=== PATIENT | female | born 1995 | race Caucasian/White ===

== ENCOUNTER 2018-03-12 14:47 | Day surgery (SDC) | payer OTHER ==
--- NOTE | 2018-03-12 14:56 | EDPHY ---
H & P Stated Complaint: LLQ PAIN Time Seen by Provider: 03/12/18 14:48 HPI/ROS: CHIEF COMPLAINT: Possible ovarian torsion HISTORY OF PRESENT ILLNESS: 23-year-old female arrives via ambulance from [facility] after she initially presented there with her mother for complaints of lower abdominal pain since this morning. She had an ultrasound performed showing an 8 cm ovarian cyst with no flow. test was not obtained at that time. She was referred to the ER after consultation with OBGYN. She remains NPO since yesterday afternoon. Her pain is currently controlled. PRIMARY CARE PROVIDER: REVIEW OF SYSTEMS: A ten point review of systems was performed and is negative with the exception of the items mentioned in the HPI PAST MEDICAL & SURGICAL HISTORY: History of recurrent is ovarian cyst SOCIAL HISTORY:Nonsmoker student PHYSICAL EXAM (Prior to examination, patient consented to physical exam, hands were washed and my usual and customary physical exam procedures followed) 1) GENERAL: Well-developed, well-nourished, alert and oriented. Appears to be in no acute distress. 2) HEAD: Normocephalic, atraumatic 3) HEENT: Pupils equal, round, reactive to light bilaterally. Sclera anicteric. 4) NECK: Full range of motion, no meningeal signs. 5) LUNGS: Clear auscultation bilaterally, no wheezes, no rhonchi, no retractions. 6) HEART: Regular rate and rhythm, no murmur, no heave, no gallop. 7) ABDOMEN: No guarding, no rebound, no focal tenderness, negative McBurney's, negative Hodge's, negative Rovsing's, negative peritoneal sign, 8) MUSCULOSKELETAL: Moving all extremities, no focal areas of tenderness, no obvious trauma. No peripheral edema or discoloration. 9) BACK: No CVA tenderness, no midline vertebral tenderness, no fluctuance, no step-off, no obvious trauma, no visual or palpable abnormality. 10) SKIN: No rash, no petechiae. 11) Psychiatric: Patient is oriented X 3, there is no agitation. DIFFERENTIAL DIAGNOSIS: In no particular order including but not limited to ovarian cyst, ovarian torsion, ectopic - Personal History Current Tetanus/Diphtheria Vaccine: Yes - Medical/Surgical History Hx Asthma: No Hx Chronic Respiratory Disease: No Hx Diabetes: No Hx Cardiac Disease: No Hx Renal Disease: No Hx Cirrhosis: No Hx Alcoholism: No Hx HIV/AIDS: No Hx Splenectomy or Spleen Trauma: No - Social History Smoking Status: Never smoked Constitutional: Initial Vital Signs Temperature (C) 36.8 C 03/12/18 14:53 Heart Rate 47 L 03/12/18 14:53 Respiratory Rate 16 03/12/18 14:53 Blood Pressure 119/73 03/12/18 14:53 O2 Sat (%) 96 03/12/18 14:53 O2 Delivery Mode Room Air Allergies/Adverse Reactions: No Known Allergies Allergy (Unverified 03/12/18 14:52) Home Medications: Medication Instructions Recorded NK [No Known Home Meds] 03/12/18 Medical Decision Making ED Course/Re-evaluation: 2:55 p.m.: Discussed case with secondary supervising physician Dr. Shannon in the ER. Dr. Coral MCALLISTER has been paged and is en route to the ER. Patient remains NPO since yesterday afternoon. test, type and screen are pending. 3:07 p.m.: Dr. Moncada in the ER to see patient. Will plan on taking the patient to the operating room. - Data Points Laboratory Results: Laboratory Results 03/12/18 14:59 03/12/18 14:56 03/12/18 03/12/18 03/12/18 14:59 14:59 14:56 WBC 10.77 10^3/uL H 10^3/uL (3.80-9.50) RBC 4.36 10^6/uL 10^6/uL (4.18-5.33) Hgb 12.6 g/dL g/dL (12.6-16.3) Hct 37.3 % L % (38.0-47.0) MCV 85.6 fL fL (81.5-99.8) MCH 28.9 pg pg (27.9-34.1) MCHC 33.8 g/dL g/dL (32.4-36.7) RDW 13.6 % % (11.5-15.2) Plt Count 229 10^3/uL D 10^3/uL (150-400) MPV 10.3 fL fL (8.7-11.7) Neut % (Auto) 87.4 % H % (39.3-74.2) Lymph % (Auto) 8.5 % L % (15.0-45.0) [place] % (Auto) 3.5 % L % (4.5-13.0) Eos % (Auto) 0.1 % L % (0.6-7.6) Baso % (Auto) 0.2 % L % (0.3-1.7) Nucleat RBC Rel Count 0.0 % % (0.0-0.2) Absolute Neuts (auto) 9.41 10^3/uL H 10^3/uL (1.70-6.50) Absolute Lymphs (auto) 0.92 10^3/uL L 10^3/uL (1.00-3.00) Absolute Monos (auto) 0.38 10^3/uL 10^3/uL (0.30-0.80) Absolute Eos (auto) 0.01 10^3/uL L 10^3/uL (0.03-0.40) Absolute Basos (auto) 0.02 10^3/uL 10^3/uL (0.02-0.10) Absolute Nucleated RBC 0.00 10^3/uL 10^3/uL (0-0.01) Immature Gran % 0.3 % % (0.0-1.1) Immature Gran # 0.03 10^3/uL 10^3/uL (0.00-0.10) PT 15.0 SEC SEC (12.0-15.0) INR 1.16 (0.83-1.16) APTT 27.2 SEC SEC (23.0-38.0) Sodium Potassium Chloride Carbon Dioxide Anion Gap BUN Creatinine Estimated GFR Glucose Calcium Beta HCG, Qual Patient ABO/Rh A POSITIVE Antibody Screen NEGATIVE 03/12/18 03/12/18 14:56 14:56 WBC RBC Hgb Hct MCV MCH MCHC RDW Plt Count MPV Neut % (Auto) Lymph % (Auto) [place] % (Auto) Eos % (Auto) Baso % (Auto) Nucleat RBC Rel Count Absolute Neuts (auto) Absolute Lymphs (auto) Absolute Monos (auto) Absolute Eos (auto) Absolute Basos (auto) Absolute Nucleated RBC Immature Gran % Immature Gran # PT INR APTT Sodium 139 mEq/L mEq/L (135-145) Potassium 4.1 mEq/L mEq/L (3.5-5.2) Chloride 108 mEq/L mEq/L (97-110) Carbon Dioxide 18 mEq/l L mEq/l (22-31) Anion Gap 13 mEq/L mEq/L (8-16) BUN 11 mg/dL mg/dL (7-23) Creatinine 0.6 mg/dL mg/dL (0.6-1.0) Estimated GFR > 60 Glucose 104 mg/dL H mg/dL (70-100) Calcium 8.5 mg/dL mg/dL (8.5-10.4) Beta HCG, Qual NEGATIVE Patient ABO/Rh Antibody Screen Medications Given: Discontinued Medications Fentanyl (Sublimaze) 50 mcg IVP EDNOW ONE Stop: 03/12/18 15:23 Last Admin: 03/12/18 15:29 Dose: 50 mcg Fentanyl (Sublimaze) 50 mcg IVP ONCE ONE Stop: 03/12/18 16:31 Last Admin: 03/12/18 16:32 Dose: 50 mcg Lactated Ringer's (Lr) 1,000 mls @ 0 mls/hr IV ONCE ONE PRN Reason: Per Protocol Stop: 03/12/18 15:57 Last Admin: 03/12/18 16:33 Dose: 1,000 mls Departure - Departure Disposition: To OP Cath/Surgery Clinical Impression: Ovarian torsion Ovarian cyst Qualifiers: Laterality: left Qualified Code(s): N83.202 - Unspecified ovarian cyst, left side Condition: Fair
[2018-03-12 15:09] LABS: PLATELET COUNT 229 10^3/uL (150-400)
[2018-03-12] MEDS ORDERED: fentaNYL 100 MCG/2 ML INJ IVP ONE ×2 (15:22→16:30)
[2018-03-12 15:31] LABS: INR 1.16 (0.83-1.16)
--- NOTE | 2018-03-12 15:39 | PDCONSULT ---
[employer] System Operator Note: Consulting Physician/Service: Alexsandra/ER Reason for Consult: Acute LLQ pelvic pain HPI: Jayne is a 23 yo G0 who developed acute abdominal/pelvic pain late last night, not really provoked by anything in particular. Worsened throughout the night and presented to [facility] this morning where she had a pelvic US that demonstrated an 8.3cm simple left ovarian cyst with no visible flow to that ovary suggesting torsion. She is in quite a bit of pain here in the ER. Has been on OCP MonoNessa for many years. Negative test here in the unit. H/o ovarian cyst many years ago which she was in her early teens - docs thought pain at that time was ovarian cyst, but never had any imaging or confirmation. No other h/o abdominal procedures. Objective: Exam: Appears uncomfortable, position on bed. Cardiac: RRR Lungs: CTAB Abd: TTP in lower quadrants, L>R, voluntary guarding Vitals: Temp Pulse Resp BP Pulse Ox 36.8 C 63 16 122/80 H 97 03/12/18 14:53 03/12/18 15:49 03/12/18 15:49 03/12/18 15:49 03/12/18 15:49 Labs: WBC 10.77 10^3/uL (3.80-9.50) H 03/12/18 14:59 RBC 4.36 10^6/uL (4.18-5.33) 03/12/18 14:59 Hgb 12.6 g/dL (12.6-16.3) 03/12/18 14:59 Hct 37.3 % (38.0-47.0) L 03/12/18 14:59 MCV 85.6 fL (81.5-99.8) 03/12/18 14:59 MCH 28.9 pg (27.9-34.1) 03/12/18 14:59 MCHC 33.8 g/dL (32.4-36.7) 03/12/18 14:59 RDW 13.6 % (11.5-15.2) 03/12/18 14:59 Plt Count 229 10^3/uL (150-400) D 03/12/18 14:59 MPV 10.3 fL (8.7-11.7) 03/12/18 14:59 Neut % (Auto) 87.4 % (39.3-74.2) H 03/12/18 14:59 Lymph % (Auto) 8.5 % (15.0-45.0) L 03/12/18 14:59 [place] % (Auto) 3.5 % (4.5-13.0) L 03/12/18 14:59 Eos % (Auto) 0.1 % (0.6-7.6) L 03/12/18 14:59 Baso % (Auto) 0.2 % (0.3-1.7) L 03/12/18 14:59 Nucleat RBC Rel Count 0.0 % (0.0-0.2) 03/12/18 14:59 Absolute Neuts (auto) 9.41 10^3/uL (1.70-6.50) H 03/12/18 14:59 Absolute Lymphs (auto) 0.92 10^3/uL (1.00-3.00) L 03/12/18 14:59 Absolute Monos (auto) 0.38 10^3/uL (0.30-0.80) 03/12/18 14:59 Absolute Eos (auto) 0.01 10^3/uL (0.03-0.40) L 03/12/18 14:59 Absolute Basos (auto) 0.02 10^3/uL (0.02-0.10) 03/12/18 14:59 Absolute Nucleated RBC 0.00 10^3/uL (0-0.01) 03/12/18 14:59 Immature Gran % 0.3 % (0.0-1.1) 03/12/18 14:59 Immature Gran # 0.03 10^3/uL (0.00-0.10) 03/12/18 14:59 PT 15.0 SEC (12.0-15.0) 03/12/18 14:59 INR 1.16 (0.83-1.16) 03/12/18 14:59 APTT 27.2 SEC (23.0-38.0) 03/12/18 14:59 Sodium 139 mEq/L (135-145) 03/12/18 14:56 Potassium 4.1 mEq/L (3.5-5.2) 03/12/18 14:56 Chloride 108 mEq/L (97-110) 03/12/18 14:56 Carbon Dioxide 18 mEq/l (22-31) L 03/12/18 14:56 Anion Gap 13 mEq/L (8-16) 03/12/18 14:56 BUN 11 mg/dL (7-23) 03/12/18 14:56 Creatinine 0.6 mg/dL (0.6-1.0) 03/12/18 14:56 Estimated GFR > 60 03/12/18 14:56 Glucose 104 mg/dL (70-100) H 03/12/18 14:56 Calcium 8.5 mg/dL (8.5-10.4) 03/12/18 14:56 Beta HCG, Qual NEGATIVE 03/12/18 14:56 Patient ABO/Rh A POSITIVE 03/12/18 14:56 Antibody Screen NEGATIVE 03/12/18 14:56 Imaging: Date of Service: 03/12/18 Acct Num: [id number] Ultrasound Pelvic Complete ___ Transabdominal and Transvaginal Pelvic Ultrasound with Duplex Doppler History: 23-year-old with left lower quadrant pain for approximately 24 hours, LMP 3 weeks ago, R10.32. Comparison: None available. Findings Transabdominal: The uterus measures 7.8 x 3.2 x 4.2 cm. A large simple appearing left ovarian cyst is present. The left ovary appears enlarged. The right ovary is not visible. The bladder is normal. Transvaginal: No fibroids are present. The endometrium is homogeneous and measures 1 mm. The right ovary measures 1.9 x 1.5 x 2.5 cm. As seen transabdominally, there is a large simple appearing left ovarian/paraovarian cyst, which measures 7.8 x 8.3 x 5.3 cm. The adjacent ovarian tissue measures 3.2 x 1.5 x 3.5 cm, with limited visualization of internal blood flow on Doppler. Normal arterial wave forms are documented to the right ovary by Doppler ultrasound. There is no free fluid. Impression: 8.3 cm simple right ovarian/paraovarian cyst, with limited visualization of blood flow in the left ovary, suspicious for torsion. Findings discussed with Maria G Vyas MD, 03/12/2018 at 1351 hours. Dictated By: Eduardo Tapia MD Assessment & Plan: 23 yo with large 8cm simple left ovarian cyst, history and doppler flow on US consistent with ovarian torsion. I saw and evaluated Jayne in the ER with her family present with her. Discussed her pain, what was on her US, and options for treatment going forward. I counseled her that I do think that ovary is torsed and that addressing that surgically would really be the best way to treat her pain and hopefully try to salvage that ovary. RBJesus Alberto discussed and she was in agreement with that plan. Consents signed in person. We did discuss that the goal will be to address the cyst (potentially by grossly rupturing it and draining it) and salvage the ovary , but that we will need to see what condition the ovary is in. I did specifically pre parole counseling aide her that in the context of torsion, sometimes the ovary has been so compromised that removing it is the best course of action. She voiced understanding about this. Routine preop orders, no antibiotics indicated. Will goto OR as soon as possible. Markus Moncada MD
[2018-03-12] MEDS ORDERED: LR 1,000 ML IV ONE (15:56)
[2018-03-12] MEDS ORDERED: BUPIVACAINE 0.25% 30 ML SDV ONE (15:58)
[2018-03-12] MEDS ORDERED: SILVER NITRATE APPLICATOR 1 APPL TP ONE (15:59)
[2018-03-12] MEDS ORDERED: fentaNYL 100 MCG/2 ML INJ ONE ×3 (16:28→19:08)
[2018-03-12] MEDS ORDERED: ONDANSETRON 4 MG/2 ML VIAL ONE ×2 (16:29→19:24)
[2018-03-12] MEDS ORDERED: ONDANSETRON 4 MG/2 ML VIAL IVP ONE (16:45)
[2018-03-12] MEDS ORDERED: DEXAMETHASONE 4 MG/ML VIAL ONE (16:47)
[2018-03-12] MEDS ORDERED: LIDOCAINE 2% 5 ML SDV ONE (16:47)
[2018-03-12] MEDS ORDERED: ROCURONIUM 50 MG/5 ML VIAL ONE (16:47)
[2018-03-12] MEDS ORDERED: PROPOFOL 200 MG/20 ML VIAL ONE (16:48)
--- NOTE | 2018-03-12 16:54 | PDANEPAE ---
ANE History of Present Illness 23 yo female with abd pain increasing since yesterday, presents with suspected torsed ovary. ANE Past Medical History - Cardiovascular History Hx Hypertension: No Hx Arrhythmias: No Hx Chest Pain: No - Pulmonary History Hx COPD: No Hx Recent Upper Respiratory Infection: No Hx Oxygen in Use at Home: No Hx Sleep Apnea: No - Endocrine History Hx Diabetes: No Obesity: no - Renal History Hx Renal Disorders: No - Liver History Hx Hepatic Disorders: No - Neurological & Psychiatric Hx Hx Neurological and Psychiatric Disorders: No ANE Review of Systems Review of Systems: - Systems Gastrointestinal: Reports: abdominal pain ANE Patient History - Allergies Allergies/Adverse Reactions: No Known Allergies Allergy (Unverified 03/12/18 14:52) - Home Medications Home Medications: NK [No Known Home Meds] 03/12/18 [Last Taken Unknown] - NPO status NPO Since - Liquids (Date): 03/12/18 NPO Since - Liquids (Time): 00:00 NPO Since - Solids (Date): 03/12/18 NPO Since - Solids (Time): 00:00 - Anes Hx Anes Hx: no prior problems - Smoking Hx Smoking Status: Never smoked Marijuana use: Yes - Alcohol Use Alcohol Use: Occasionally - Family Anes Hx Family Anes Hx: neg - N/A ANE Labs/Vital Signs - Labs Result Diagrams: 03/12/18 14:59 03/12/18 14:56 - Vital Signs Blood Pressure: 121/85 Heart Rate: 43 Respiratory Rate: 18 O2 Sat (%): 94 Height: 170.18 cm Weight: 52.163 kg ANE Physical Exam - Airway Neck exam: FROM Mallampati Score: Class 1 Mouth exam: normal dental/mouth exam - Pulmonary Pulmonary: clear to auscultation - Cardiovascular Cardiovascular: bradycardia - ASA Status ASA Status: I, E ANE Anesthesia Plan Anesthesia Plan: general endotracheal anesthesia
[2018-03-12] MEDS ORDERED: PROPOFOL/EMULSION 500 MG/50 ML BOTTLE IV ONE (17:32)
[2018-03-12] MEDS ORDERED: NEOSTIGMINE METHYLSULFATE 3 MG/3 ML SYR ONE (18:24)
[2018-03-12] MEDS ORDERED: GLYCOPYRROLATE 0.2 MG/1 ML VIAL ONE (18:24)
[2018-03-12] MEDS ORDERED: LR 500 ML IV PRN (18:32)
[2018-03-12] MEDS ORDERED: NALOXONE HCL 0.4 MG/ML INJ IVP PRN (18:32)
[2018-03-12] MEDS ORDERED: ALBUTEROL 3 ML DEYVIAL IH PRN (18:32)
[2018-03-12] MEDS ORDERED: oxyCODONE IR 5 MG TAB PO PRN (18:32)
[2018-03-12] MEDS ORDERED: fentaNYL 100 MCG/2 ML INJ IVP PRN (18:32)
[2018-03-12] MEDS ORDERED: PROMETHAZINE HCL 25 MG/ML INJ IVP PRN (18:32)
--- NOTE | 2018-03-12 18:53 | POSTANESTH ---
Post Anesthetic Evaluation Cardiovascular Status: Normal, Stable, Similar to Pre-Op Cond Respiratory Status: Normal, Stable Level of Consciousness/Mental Status: Unconscious Pain Control: Adequate, Prn Tx Ordered Nausea/Vomiting Control: Adequate, Prn Tx Ordered Complications Possibly Related to Anesthesia: None Noted
--- NOTE | 2018-03-12 19:06 | POSTOPPROG ---
Post Op Note Date of Operation: 03/12/18 Surgeon: Markus Moncada Supervisor Malted Milk: SHANTEL Deluca Anesthesiologist: Rosa M Mejia MD Anesthesia: GET(General Endotracheal) Pre-op Diagnosis: Acute LLQ pain, left ovarian cyst Post-op Diagnosis: 8cm left ovarian/tubal cyst, right adnexal/ovarian torsion Procedure: Diagnostic laparoscopy, Left salpingectomy w removal large adnexal cyst Findings: Large 8cm simple left adnexal cyst, suspect paratubal, clearly torsed Inf/Abcess present in the surg proc area at time of surgery?: No EBL: Minimal Complications: None Specimen(s): Left fallopian tube with associated cyst
--- NOTE | 2018-03-12 19:28 | SUROPNOTE ---
[facility] Operative Report - Surgery Date of Operation: 03/12/18 Surgeon: Markus Moncada Qa Engineer: SHANTEL Deluca Anesthesiologist: Rosa M Mejia MD Anesthesia: GET(General Endotracheal) Pre-op Diagnosis: Acute LLQ pain, left ovarian cyst Post-op Diagnosis: 8cm left ovarian/tubal cyst, right adnexal/ovarian torsion Procedure: Diagnostic laparoscopy, Left salpingectomy w removal large adnexal cyst Findings: Large 8cm simple left adnexal cyst, suspect paratubal, clearly torsed Inf/Abcess present in the surg proc area at time of surgery?: No EBL: Minimal Complications: None Specimen(s): Left fallopian tube with associated cyst
[2018-03-12 20:17] VITALS: BP 114/78
== END 2018-03-12 20:40 | disposition home or self-care (01) ==
LOC: EDUNIT# → FSGY 15:17 → UNDOADMOB 15:17 → FSGY 20:40 → UNDODISOB 20:40
PROVIDERS: ATTEND Obstetrics & Gynecology
PROC: 0UT64ZZ Resection of Left Fallopian Tube, Percutaneous Endoscopic Approach (ICD-10-PCS; principal; 2018-03-12 16:45)
PROC: 0UB14ZX Excision of Left Ovary, Percutaneous Endoscopic Approach, Diagnostic (ICD-10-PCS; principal; 2018-03-12 16:45)
DX: N83.292 Other ovarian cyst, left side (principal); N83.511 Torsion of right ovary and ovarian pedicle
CPT/HCPCS: 96374; J0171; J1100; J2405; J2704; J2710; J3010

== ENCOUNTER → 2018-03-12 | Outpatient (CLI) | payer OTHER | LOC: BMCIMAGING 12:51 | PROVIDERS: ATTEND Family Medicine | DX: N83.202 Unspecified ovarian cyst, left side (principal) ==